=== PATIENT | female | born 1960 | race Caucasian/White ===

== ENCOUNTER 2017-01-07 13:24 | Outpatient (CLI) | payer BC | END 2017-01-07 13:25 | disposition home or self-care (01) | DX: Z12.31 Encounter for screening mammogram for malignant neoplasm of breast (principal); C34.90 Malignant neoplasm of unspecified part of unspecified bronchus or lung ==

== ENCOUNTER 2017-02-11 15:37 | Outpatient (CLI) | payer BC ==
[2017-02-11 19:17] LABS: BILIRUBIN,URINE NEGATIVE (NEGATIVE)
[2017-02-11 19:25] LABS: BUN - BLOOD UREA NITROGEN 13 mg/dL (6-20); CALCIUM 9.3 mg/dL (8.5-10.3); CARBON DIOXIDE - CO2 29 mmol/L (21-32); CHLORIDE 102 mmol/L (101-111); CHOL/HDL RATIO 3.5 (<4.4); CHOLESTEROL 177 mg/dL; CREATININE 0.8 mg/dL (0.4-1.0); GFR - MDRD 74 (>89); GLUCOSE 100 mg/dL (70-100); HDL CHOLESTEROL 50 mg/dL; POTASSIUM 3.8 mmol/L (3.5-5.0); SODIUM 139 mmol/L (135-145); TRIGLYCERIDES 375 mg/dL; VLDL CHOLESTEROL 75 mg/dL
[2017-02-11 19:48] LABS: WBC,URINE 0-3 /HPF (0-5)
== END 2017-02-11 15:38 | disposition home or self-care (01) ==
LOC: LAB.F 15:37
PROVIDERS: ATTEND Internal Medicine
DX: R39.15 Urgency of urination (principal); R35.0 Frequency of micturition; E78.00 Pure hypercholesterolemia, unspecified
CPT/HCPCS: 36415; 80048; 80061; 81001

== ENCOUNTER 2017-03-04 14:28 | Outpatient (CLI) | payer BC ==
--- NOTE | 2017-03-04 17:13 | Ultrasound Report ---
BLADDER ULTRASOUND: 03/04/2017 CLINICAL INDICATION: Urgency of urination. TECHNIQUE: Real-time scanning was performed with customer field representative static images obtained. Prevoid, the urinary bladder measures 9.6 x 8.5 x 7.3 cm, yielding a prevoid volume of 310 mL. Bilat eral ureteral jets are visualized. Postvoid residual is 26 mL. No focal bladder lesion is seen. IMPRESSION: A 26 ML POSTVOID RESIDUAL. JOB #: [id number] EXT JOB #:[id number]
== END 2017-03-04 14:29 | disposition home or self-care (01) ==
LOC: DI 14:28
PROVIDERS: ATTEND Internal Medicine
DX: R39.15 Urgency of urination (principal)
CPT/HCPCS: 76857

== ENCOUNTER 2017-10-21 17:00 | Outpatient (CLI) | payer OTHER ==
--- NOTE | 2017-10-22 10:39 | Ultrasound Report ---
PELVIC ULTRASOUND: 10/21/2017 CLINICAL INDICATION: Pain. TECHNIQUE: Transabdominal pelvic ultrasound performed for global evaluation. Transvaginal pelvic ultrasound performed for detailed evaluation. Real-time scanning performed and static images obtained. FINDINGS: The uterus is anteverted, measuring 4.0 x 4.0 x 2.5 cm. The endometrial echo complex measures 2 mm. No focal myometrial lesion is appreciated. The ovaries are unremarkable, with the right measuring 1.7 x 1.4 x 1.1 cm and the left measuring 1.5 x 1.1 x 1.0 cm. No free fluid is present. IMPRESSION: NORMAL PELVIC ULTRASOUND. TD: 10/22/2017 10:37
== END 2017-10-21 17:01 | disposition home or self-care (01) ==
LOC: DI 17:00
PROVIDERS: ATTEND Obstetrics & Gynecology
DX: R10.2 Pelvic and perineal pain (principal)
CPT/HCPCS: 76830; 76856

== ENCOUNTER 2017-11-07 08:00 | Outpatient (CLI) | payer OTHER ==
[2017-11-07 17:33] LABS: BASOPHILS % (AUTO) 0.7 %; EOSINOPHILS % (AUTO) 0.7 %; HGB - HEMOGLOBIN 12.5 g/dL (12.0-16.0); LYMPHOCYTES # (AUTO) 2.3 10^3/uL (1.5-3.5); LYMPHOCYTES % (AUTO) 35.2 %; MEAN CORPUSCULAR HEMOGLOBIN 29.4 pg (27.0-31.0); MEAN CORPUSCULAR HGB CONC 33.1 g/dL (32.0-36.0); MEAN CORPUSCULAR VOLUME 88.9 fL (81.0-99.0); MEAN PLATELET VOLUME 9.4 fL (7.9-10.8); MONOCYTES # (AUTO) 0.5 10^3/uL (0.0-1.0); MONOCYTES % (AUTO) 7.6 %; NEUTROPHILS # (AUTO) 3.6 10^3/uL (1.5-6.6); NEUTROPHILS % (AUTO) 55.8 %; PLT - PLATELET COUNT 240 10^3/uL (130-450); RED BLOOD COUNT 4.24 10^6/uL (4.20-5.40); RED CELL DISTRIBUTION WIDTH 12.5 % (12.0-15.0); WHITE BLOOD COUNT 6.5 x10^3/uL (4.8-10.8)
[2017-11-07 17:47] LABS: ALBUMIN 4.5 g/dL (3.2-5.5); ALBUMIN/GLOBULIN RATIO 1.7 (1.0-2.2); ALKALINE PHOSPHATASE 51 IU/L (42-121); ALT ALANINE AMINOTRANSFERASE 27 IU/L (10-60); AST ASPARTATE AMINOTRANSFERASE 20 IU/L (10-42); BILIRUBIN,TOTAL 0.4 mg/dL (0.2-1.0); BUN - BLOOD UREA NITROGEN 14 mg/dL (6-20); CALCIUM 8.8 mg/dL (8.5-10.3); CARBON DIOXIDE - CO2 27 mmol/L (21-32); CHLORIDE 102 mmol/L (101-111); CREATININE 0.7 mg/dL (0.4-1.0); GFR - MDRD 86 (>89); GLUCOSE 91 mg/dL (70-100); SODIUM 136 mmol/L (135-145); TOTAL PROTEIN 7.1 g/dL (6.7-8.2)
== END 2017-11-07 08:01 | disposition home or self-care (01) ==
LOC: LAB.F 08:00
PROVIDERS: ATTEND Nurse Practitioner Family
DX: R25.2 Cramp and spasm (principal)
CPT/HCPCS: 36415; 80053; 84443; 85025

== ENCOUNTER 2017-12-02 15:11 | Outpatient (CLI) | payer OTHER ==
--- NOTE | 2017-12-03 08:30 | Ultrasound Report ---
EXAM: RIGHT LOWER EXTREMITY VENOUS ULTRASOUND EXAM DATE: 12/02/2017 04:15 PM. CLINICAL HISTORY: LEG CRAMP, RIGHT. COMPARISON: None. TECHNIQUE: Real-time sonographic vascular imaging was performed by the golf stud riveter through the lower extremity utilizing both color-flow and Doppler spectral analysis. Multiple patient care representative static benjamin ges were saved for review. FINDINGS: Common Femoral Vein (CFV): Normal. CFV-GSV Junction: Normal. Profunda Femoral Vein (PFV): Normal. Femoral Vein (FV) Prox: Normal. Femoral Vein (FV) Mid: Normal. Femoral Vein (FV) Dist: Normal. Popliteal Vein: Normal. Posterior Tibial Veins: Normal. Peroneal Veins: Normal. Contralateral Side CFV: Normal. Other: None. IMPRESSION: No evidence for right lower extremity deep venous thrombosis. [facility] Referring Provider Line: [phone] SITE ID: [id number]
== END 2017-12-02 15:12 | disposition home or self-care (01) ==
LOC: DI 15:11
PROVIDERS: ATTEND Nurse Practitioner Family
DX: R25.2 Cramp and spasm (principal)

== ENCOUNTER 2017-12-13 15:20 | Outpatient (CLI) | payer OTHER ==
--- NOTE | 2017-12-16 13:53 | Mammography Report ---
DIGITAL SCREENING MAMMOGRAM: 12/13/2017 CLINICAL INDICATION: A 57-year-old for screening. COMPARISON: 12/2016, 12/2015, 10/2014, 07/2013, 07/2012, 07/2011, 05/2010. TECHNIQUE: Routine CC and MLO projections were obtained of the breasts. FINDINGS: Scattered fibroglandular tissue is present within the breasts. There are no dominant masses, suspicious microcalcifications, or secondary signs of malignancy. In comparison to the previous studies, there are no significant changes. IMPRESSION: NO MAMMOGRAPHIC EVIDENCE OF MALIGNANCY. NO SIGNIFICANT INTERVAL CHANGES. RECOMMENDATION: Screening mammography is recommended annually. BIRADS CATEGORY 1 - NEGATIVE. STANDARD QUALIFYING STATEMENTS: 1. This examination was reviewed with the aid of Computed-Aided Detection (CAD). 2. A negative or benign imaging report should not delay biopsy if clinically suspicious findings are present. Consider surgical consultation if warranted. More than 5% of cancers are not identified by imaging. 3. Dense breasts may obscure an underlying neoplasm. TD: 12/16/2017 13:53
== END 2017-12-13 15:21 | disposition home or self-care (01) ==
LOC: DI.S 15:20
PROVIDERS: ATTEND Nurse Practitioner Family
DX: Z12.31 Encounter for screening mammogram for malignant neoplasm of breast (principal)
CPT/HCPCS: 77067

== ENCOUNTER 2017-12-13 15:21 | Outpatient (CLI) | payer OTHER ==
--- NOTE | 2017-12-13 22:51 | XRAY Report ---
EXAM: CHEST RADIOGRAPHY EXAM DATE: 12/13/2017 03:42 PM. CLINICAL HISTORY: Malignant lung neoplasm. COMPARISON: 01/07/2017. TECHNIQUE: 2 views. FINDINGS: Lungs/Pleura: Right mid lung scarring, otherwise no focal opacities evident. No pleural effusion. No pneumothorax. Normal volumes. Mediastinum: Heart and mediastinal contours are unremarkable. Other: No bony abnormality noted. IMPRESSION: Right mid lung scarring, otherwise unremarkable 2-view chest radiography. [facility] Referring Provider Line: [phone] SITE ID: [id number]
== END 2017-12-13 15:22 | disposition home or self-care (01) ==
LOC: DI.S 15:21
PROVIDERS: ATTEND Nurse Practitioner Family
DX: C34.90 Malignant neoplasm of unspecified part of unspecified bronchus or lung (principal)
CPT/HCPCS: 71046

== ENCOUNTER 2018-01-06 10:17 | Outpatient (CLI) | payer OTHER ==
[2018-01-06 18:36] LABS: CHOL/HDL RATIO 3.8 (<4.4); CHOLESTEROL 175 mg/dL; HDL CHOLESTEROL 46 mg/dL; LDL CHOLESTEROL,CALCULATED 104 mg/dL; LDL/HDL RATIO 2.3 (<4.4); VLDL CHOLESTEROL 25 mg/dL
== END 2018-01-06 10:18 | disposition home or self-care (01) ==
LOC: LAB.F 10:17
PROVIDERS: ATTEND Nurse Practitioner Family
DX: E78.00 Pure hypercholesterolemia, unspecified (principal)
CPT/HCPCS: 36415; 80061; 83721

== ENCOUNTER 2018-07-08 11:10 | Outpatient (CLI) | payer OTHER ==
[~2018-07-08 11:10] MED LIST: IOPAMIDOL-300 100 ML VIAL ONE; IOVERSOL 320 50 ML VIAL ONE
[2018-07-08] MEDS ORDERED: IOPAMIDOL-300 100 ML VIAL IVP ONE (14:27)
[2018-07-08] MEDS ORDERED: IOVERSOL 320 50 ML VIAL PO ONE (14:27)
--- NOTE | 2018-07-09 10:15 | CT Report ---
Reason: PELVIC PAIN,PERSONAL HISTORY OF MALIGNANT NEOPLASM Procedure Date: 07/08/2018 Accession Number: [id number] / [id number] Procedure: CT - Abdomen/Pelvis W/ CPT Code: FULL RESULT: EXAM: CT ABDOMEN AND PELVIS WITH CONTRAST EXAM DATE: 07/08/2018 12:59 PM. CLINICAL HISTORY: Pelvic pain. Personal history of malignant neoplasm. COMPARISONS: CT chest with contrast 02/20/2016. CT abdomen and pelvis 08/21/2007. TECHNIQUE: Routine helical CT imaging was performed through the abdomen and pelvis. IV contrast: Yes. Enteric contrast: No. Reconstructions: Coronal and sagittal. In accordance with CT protocol optimization, one or more of the following dose reduction techniques were utilized for this exam: automated exposure control, adjustment of mA and/or KV based on patient size, or use of iterative reconstructive technique. FINDINGS: Lung Bases: Unremarkable. Liver: Normal. No masses. Gallbladder/Bile Ducts: Unremarkable. Spleen: Normal. Pancreas: Normal. Adrenal Glands: Normal. Kidneys: Normal. No masses or hydronephrosis. Peritoneal Cavity/Bowel: Normal. No free fluid, free air or adenopathy. No masses or acute inflammatory process. The appendix is well visualized and normal. Pelvic Organs: 2 surgical clips are noted in the region of the cervix. The bladder and visualized pelvic organs are within normal limits. Vasculature: No aneurysms or other significant abnormality. Bones: No significant abnormality. Other: None. IMPRESSION: Normal abdomen and pelvis CT. [facility]
--- NOTE | 2018-07-09 10:24 | CT Report ---
Reason: PELVIC PAIN,PERSONAL HISTORY OF MALIGNANT NEOPLASM Procedure Date: 07/08/2018 Accession Number: [id number] / [id number] Procedure: CT - Chest W/ CPT Code: FULL RESULT: EXAM: CT CHEST WITH CONTRAST EXAM DATE: 07/08/2018 12:59 PM. CLINICAL HISTORY: Pelvic pain. Personal history of malignant neoplasm. COMPARISONS: CT chest with contrast 02/20/2016. TECHNIQUE: Routine helical CT imaging was performed through the chest. IV contrast: Yes. Reconstructions: Coronal and sagittal. In accordance with CT protocol optimization, one or more of the following dose reduction techniques were utilized for this exam: automated exposure control, adjustment of mA and/or KV based on patient size, or use of iterative reconstructive technique. FINDINGS: Lungs/Pleura: No nodules, bronchial thickening, consolidation, or edema. Pulmonary vasculature is normal. No pericardial or pleural effusion. No pneumothorax. Stable appearance of a long staple line in the right middle lobe from a prior procedure. Mediastinum: Normal. No adenopathy or masses. The heart and great vessels are normal. Bones: Unremarkable. Visualized Abdomen: Dictated separately. Other: None. IMPRESSION: Normal chest CT. [facility]
== END 2018-07-08 11:11 | disposition home or self-care (01) ==
LOC: DI 11:10
PROVIDERS: ATTEND Physician Assistant Medical
DX: R10.2 Pelvic and perineal pain (principal); Z85.41 Personal history of malignant neoplasm of cervix uteri; Z85.118 Personal history of other malignant neoplasm of bronchus and lung
CPT/HCPCS: 71260; 74177; Q9967

== ENCOUNTER 2018-10-24 10:54 | Outpatient (CLI) | payer OTHER ==
[2018-10-24 17:33] LABS: BASOPHILS % (AUTO) 0.5 %; EOSINOPHILS # (AUTO) 0.1 10^3/uL (0.0-0.7); EOSINOPHILS % (AUTO) 2.6 %; HGB - HEMOGLOBIN 13.3 g/dL (12.0-16.0); LYMPHOCYTES # (AUTO) 2.2 10^3/uL (1.5-3.5); LYMPHOCYTES % (AUTO) 44.2 %; MEAN CORPUSCULAR HEMOGLOBIN 29.9 pg (27.0-31.0); MEAN CORPUSCULAR HGB CONC 33.1 g/dL (32.0-36.0); MEAN CORPUSCULAR VOLUME 90.3 fL (81.0-99.0); MEAN PLATELET VOLUME 9.5 fL (7.9-10.8); MONOCYTES # (AUTO) 0.4 10^3/uL (0.0-1.0); MONOCYTES % (AUTO) 8.2 %; NEUTROPHILS # (AUTO) 2.3 10^3/uL (1.5-6.6); NEUTROPHILS % (AUTO) 44.5 %; PLT - PLATELET COUNT 223 10^3/uL (130-450); RED BLOOD COUNT 4.46 10^6/uL (4.20-5.40); RED CELL DISTRIBUTION WIDTH 13.1 % (12.0-15.0); WHITE BLOOD COUNT 5.1 x10^3/uL (4.8-10.8)
[2018-10-24 18:04] LABS: ALBUMIN 4.3 g/dL (3.2-5.5); ALBUMIN/GLOBULIN RATIO 1.6 (1.0-2.2); ALKALINE PHOSPHATASE 51 IU/L (42-121); ALT ALANINE AMINOTRANSFERASE 33 IU/L (10-60); AST ASPARTATE AMINOTRANSFERASE 22 IU/L (10-42); BILIRUBIN,TOTAL 0.6 mg/dL (0.2-1.0); BUN - BLOOD UREA NITROGEN 10 mg/dL (6-20); CALCIUM 8.9 mg/dL (8.5-10.3); CARBON DIOXIDE - CO2 26 mmol/L (21-32); CHLORIDE 103 mmol/L (101-111); CHOL/HDL RATIO 3.8 (<4.4); CHOLESTEROL 203 mg/dL; CREATININE 0.6 mg/dL (0.4-1.0); GFR - MDRD 103 (>89); GLUCOSE 95 mg/dL (70-100); HDL CHOLESTEROL 53 mg/dL; LDL CHOLESTEROL,CALCULATED 115 mg/dL; LDL/HDL RATIO 2.2 (<4.4); SODIUM 137 mmol/L (135-145); VLDL CHOLESTEROL 35 mg/dL
== END 2018-10-24 10:55 | disposition home or self-care (01) ==
LOC: LAB.F 10:54
PROVIDERS: ATTEND Physician Assistant Medical
DX: E78.00 Pure hypercholesterolemia, unspecified (principal); Z51.81 Encounter for therapeutic drug level monitoring; Z79.899 Other long term (current) drug therapy
CPT/HCPCS: 36415; 80053; 80061; 83721; 85025

== ENCOUNTER 2019-04-10 11:27 | Outpatient (CLI) | payer OTHER ==
--- NOTE | 2019-04-13 11:42 | Mammography Report ---
Reason: SCREENING MAMMO Procedure Date: 04/10/2019 Accession Number: [id number] / [id number] Procedure: MGS - Screening Mammo Dig Bilat CPT Code: FULL RESULT: EXAM: Screening Mammo Dig Bilat DATE: 04/10/2019 11:49 AM CLINICAL HISTORY: Routine screening. Personal history of ovarian cancer. Family history of breast cancer in maternal aunt age 45 and another at age 42. TECHNIQUE: (B) - Bilateral CC and MLO views were obtained. COMPARISON: 12/13/2017 through 10/29/2014 PARENCHYMAL PATTERN: (A) - The breasts demonstrate scattered fibroglandular densities bilaterally. FINDINGS: Bilateral breasts: There are no suspicious masses, calcifications, or areas of distortion. IMPRESSION: Negative examination. BI-RADS category 1. RECOMMENDATION: (ANNUAL) - Recommend routine annual screening mammography. Note: Given family history, patient may be at increased risk for development of breast cancer. Formal risk assessment with a genetic counselor should be considered; patient may benefit from advanced screening practices and/or risk reduction strategies if there is sufficient assessed risk. BI-RADS CATEGORY: (1) - Negative. STANDARD QUALIFYING STATEMENTS: 1. This examination was reviewed with the aid of Computer-Aided Detection (CAD). 2. A negative or benign imaging report should not preclude biopsy if clinically suspicious findings are present. 3. Dense breasts may obscure an underlying neoplasm. 4. This examination was reviewed without the aid of 3D breast imaging (tomosynthesis).
== END 2019-04-10 11:28 | disposition home or self-care (01) ==
LOC: DI.S 11:27
DX: Z12.31 Encounter for screening mammogram for malignant neoplasm of breast (principal); Z80.3 Family history of malignant neoplasm of breast; Z85.43 Personal history of malignant neoplasm of ovary
CPT/HCPCS: 77067

== ENCOUNTER 2019-11-13 12:15 | Outpatient (CLI) | payer OTHER ==
[2019-11-13] MEDS ORDERED: IOVERSOL 320 50 ML VIAL ONE (12:27)
[2019-11-13] MEDS ORDERED: IOVERSOL 320 100 ML VIAL IVP ONE ×2 (12:27→13:51)
[2019-11-13] MEDS ORDERED: IOVERSOL 320 50 ML VIAL PO ONE (13:51)
--- NOTE | 2019-11-16 08:50 | CT Report ---
Reason: HX OF LUNG CA Procedure Date: 11/13/2019 Accession Number: [id number] / [id number] Procedure: CT - ABDOMEN W CPT Code: Final Report FULL RESULT: EXAM: CT ABDOMEN EXAM DATE: 11/13/2019 01:50 PM. CLINICAL HISTORY: HX OF LUNG CA. COMPARISON: None. TECHNIQUE: Routine helical CT imaging was performed through the abdomen. IV contrast: 100 mL OPTIRAY 320 Enteric contrast: No. Reconstruction: Coronal and sagittal. In accordance with CT protocol optimization, one or more of the following dose reduction techniques were utilized for this exam: automated exposure control, adjustment of mA and/or KV based on patient size, or use of iterative reconstructive technique. FINDINGS: Lung Bases: Mild bibasilar atelectasis. Liver: Diffusely decreased liver attenuation compatible with fatty infiltration. Tiny low attenuation focus in left lower lobe, probable cyst that is too small to characterize. No suspicious mass. Gallbladder/Bile Ducts: Unremarkable. Spleen: Normal. Splenule noted. Pancreas: Normal. Adrenal Glands: Normal. Kidneys: Normal. No masses or hydronephrosis. Peritoneal Cavity/Bowel: Normal. No free fluid, free air or adenopathy. No masses or acute inflammatory process. Vasculature: No aneurysms or other significant abnormality. Bones: No significant abnormality. Other: None. IMPRESSION: 1. Fatty liver. 2. No evidence of mass or adenopathy. [facility]
--- NOTE | 2019-11-16 09:00 | CT Report ---
Reason: HX OF LUNG CA Procedure Date: 11/13/2019 Accession Number: [id number] / [id number] Procedure: CT - CHEST W CPT Code: Final Report FULL RESULT: EXAM: CT CHEST EXAM DATE: 11/13/2019 01:50 PM. CLINICAL HISTORY: HX OF LUNG CA. COMPARISONS: CHEST W/ 07/08/2018 12:44 PM. TECHNIQUE: Routine helical CT imaging was performed through the chest. IV contrast: 100 mL Optiray 320. Reconstructions: Coronal and sagittal. In accordance with CT protocol optimization, one or more of the following dose reduction techniques were utilized for this exam: automated exposure control, adjustment of mA and/or KV based on patient size, or use of iterative reconstructive technique. FINDINGS: Lungs/Pleura: No nodules, bronchial thickening, consolidation, or edema. Pulmonary vasculature is normal. No pericardial or pleural effusion. No pneumothorax. Right middle lobe surgical suture. Bibasilar atelectasis. Mediastinum: Normal. No adenopathy or masses. The heart and great vessels are normal. Bones: Unremarkable. Visualized Abdomen: Splenule noted. No mass or adenopathy evident. Other: None. IMPRESSION: Normal chest CT. [facility]
== END 2019-11-13 12:16 | disposition home or self-care (01) ==
LOC: DI 12:15
PROVIDERS: ATTEND Physician Assistant Medical
DX: Z85.118 Personal history of other malignant neoplasm of bronchus and lung (principal); K76.0 Fatty (change of) liver, not elsewhere classified
CPT/HCPCS: 71260; 74160; Q9967

== ENCOUNTER 2020-02-23 09:00 | Outpatient (CLI) | payer OTHER ==
[2020-02-23 15:22] LABS: BASOPHILS # (AUTO) 0.1 10^3/uL (0.0-0.1); BASOPHILS % (AUTO) 0.8 %; EOSINOPHILS # (AUTO) 0.1 10^3/uL (0.0-0.7); HGB - HEMOGLOBIN 13.4 g/dL (12.0-16.0); LYMPHOCYTES # (AUTO) 2.9 10^3/uL (1.5-3.5); LYMPHOCYTES % (AUTO) 43.9 %; MEAN CORPUSCULAR HEMOGLOBIN 30.6 pg (27.0-31.0); MEAN CORPUSCULAR HGB CONC 32.8 g/dL (32.0-36.0); MEAN CORPUSCULAR VOLUME 93.2 fL (81.0-99.0); MEAN PLATELET VOLUME 11.1 fL (7.9-10.8); MONOCYTES # (AUTO) 0.5 10^3/uL (0.0-1.0); MONOCYTES % (AUTO) 7.1 %; NEUTROPHILS % (AUTO) 45.9 %; PLT - PLATELET COUNT 241 10^3/uL (130-450); RED BLOOD COUNT 4.38 10^6/uL (4.20-5.40); RED CELL DISTRIBUTION WIDTH 12.6 % (12.0-15.0); WHITE BLOOD COUNT 6.6 x10^3/uL (4.8-10.8)
[2020-02-23 15:44] LABS: ALBUMIN 4.4 g/dL (3.2-5.5); ALBUMIN/GLOBULIN RATIO 1.6 (1.0-2.2); ALKALINE PHOSPHATASE 67 IU/L (42-121); ALT ALANINE AMINOTRANSFERASE 50 IU/L (10-60); AST ASPARTATE AMINOTRANSFERASE 26 IU/L (10-42); BILIRUBIN,TOTAL 0.6 mg/dL (0.2-1.0); BUN - BLOOD UREA NITROGEN 11 mg/dL (6-20); CALCIUM 9.2 mg/dL (8.5-10.3); CARBON DIOXIDE - CO2 26 mmol/L (21-32); CHLORIDE 105 mmol/L (101-111); CHOL/HDL RATIO 4.2 (<4.4); CHOLESTEROL 179 mg/dL; CREATININE 0.7 mg/dL (0.4-1.0); GLUCOSE 103 mg/dL (70-100); HDL CHOLESTEROL 43 mg/dL; LDL CHOLESTEROL,CALCULATED 94 mg/dL; LDL/HDL RATIO 2.2 (<4.4); SODIUM 140 mmol/L (135-145); TOTAL PROTEIN 7.1 g/dL (6.7-8.2); VLDL CHOLESTEROL 42 mg/dL
== END 2020-02-23 09:01 | disposition home or self-care (01) ==
LOC: LAB.S 09:00
PROVIDERS: ATTEND Physician Assistant
DX: E78.00 Pure hypercholesterolemia, unspecified (principal); Z51.81 Encounter for therapeutic drug level monitoring
CPT/HCPCS: 36415; 80053; 80061; 83721; 85025

== ENCOUNTER 2021-01-17 08:36 | Day surgery (SDC) | payer OTHER ==
[2021-01-17] MEDS ORDERED: LACTATED RINGERS 1,000 ML IV ONE ×2 (08:51→12:00)
[2021-01-17] MEDS ORDERED: fentaNYL 250 MCG/5 ML VIAL ONE (11:22)
[2021-01-17] MEDS ORDERED: MIDAZOLAM 2 MG/2 ML VIAL ONE ×3 (11:22→11:41)
[2021-01-17 12:27] VITALS: BP 105/68
== END 2021-01-17 08:37 | disposition home or self-care (01) ==
LOC: SDS 08:36
PROVIDERS: ATTEND Surgery
PROC: 0DBL8ZZ Excision of Transverse Colon, Via Natural or Artificial Opening Endoscopic (ICD-10-PCS; principal; 2021-01-17 10:00)
DX: Z12.11 Encounter for screening for malignant neoplasm of colon (principal); D12.3 Benign neoplasm of transverse colon; K57.30 Diverticulosis of large intestine without perforation or abscess without bleeding; K64.8 Other hemorrhoids; K64.4 Residual hemorrhoidal skin tags; F32.9 Major depressive disorder, single episode, unspecified; E78.5 Hyperlipidemia, unspecified
CPT/HCPCS: 45380; J3010; J7120

== ENCOUNTER 2021-03-27 10:06 | Outpatient (CLI) | payer OTHER ==
--- NOTE | 2021-03-28 13:56 | Mammography Report ---
BILATERAL DIGITAL SCREENING MAMMOGRAM 3D/2D WITH EXAGGERATED CC: 03/27/2021 CLINICAL: Family history of breast cancer. Comparison is made to exams dated: 04/10/2019 mammogram, 12/13/2017 mammogram, 01/09/2016 mammogram, an d 10/29/2014 mammogram - [facility]. There are scattered fibroglandular elements in both breasts. No significant masses, calcifications, or other findings are seen in either breast. There has been no significant interval change. IMPRESSION: NEGATIVE There is no mammographic evidence of malignancy. A 1 year screening mammogram is recommended. This exam was interpreted at Station ID: [id number]. NOTE: For mammograms, a report in lay terms will be sent to the patient. Approximately 15% of breast malignancies will not be visualized mammographically. In the management of a palpable breast mass, a negative mammogram must not discourage biopsy of a clinically suspicious lesion. Electronically Signed By: Keith Graham M.D. aty/penrad:03/27/2021 13:15:49 ACR BI-RADS Category 1: Negative 3341F PARENCHYMAL PATTERN: (A) - The breast(s) demonstrate(s) scattered fibroglandular densities. BI-RADS CATEGORY: (1) - 1 RECOMMENDATION: (ANNUAL) - Recommend routine annual screening mammography. [id number] 1 year screening LATERALITY: (B)
== END 2021-03-27 10:07 | disposition home or self-care (01) ==
LOC: DI.S 10:06
PROVIDERS: ATTEND Obstetrics & Gynecology
DX: Z12.31 Encounter for screening mammogram for malignant neoplasm of breast (principal); Z80.3 Family history of malignant neoplasm of breast

== ENCOUNTER 2022-06-13 12:59 | Outpatient (CLI) | payer OTHER ==
--- NOTE | 2022-06-14 10:37 | Mammography Report ---
BILATERAL DIGITAL SCREENING MAMMOGRAM 3D/2D: 06/13/2022 CLINICAL: Routine screening. Family history of breast cancer. Comparison is made to exams dated: 03/27/2021 mammogram, 04/10/2019 mammogram, 12/13/2017 mammogram, and 01/07/2017 mammogram - [facility]. There are scattered areas of fibroglandular density in both breasts (category b / 25%-50% glandular t issue). No significant masses, calcifications, or other findings are seen in either breast. There has been no significant interval change. IMPRESSION: NEGATIVE There is no mammographic evidence of malignancy. A 1 year screening mammogram is recommended. Based on the Tyrer Cuzick model (a risk assessment model) the patients lifetime risk is 4.5% and her 10 year risk is 1.9%. According to the ACR, ACS, and NCCN guidelines, an annual breast MRI exam stacie g with mammogram is recommended if the patients lifetime risk is 20% or greater. This exam was interpreted at Station ID: [id number]. NOTE: For mammograms, a report in lay terms will be sent to the patient. Approximately 15% of breast malignancies will not be visualized mammographically. In the management of a palpable breast mass, a negative mammogram must not discourage biopsy of a clinically suspicious lesion. Electronically Signed By: Keith aldana/paula:06/13/2022 17:51:36 ACR BI-RADS Category 1: Negative 3341F PARENCHYMAL PATTERN: (A) - The breast(s) demonstrate(s) scattered fibroglandular densities. BI-RADS CATEGORY: (1) - 1 RECOMMENDATION: (ANNUAL) - Recommend routine annual screening mammography. [id number] 1 year screening LATERALITY: (B)
== END 2022-06-13 13:00 | disposition home or self-care (01) ==
LOC: DI.S 12:59
DX: Z12.31 Encounter for screening mammogram for malignant neoplasm of breast (principal); Z80.3 Family history of malignant neoplasm of breast

== ENCOUNTER 2024-01-10 13:07 | Outpatient (CLI) | payer OTHER ==
[2024-01-10] MEDS ORDERED: DIATRIZOATE MEGLU/DIATRIZO SOD 30 ML BOTTLE PO ONE (13:29)
[2024-01-10] MEDS ORDERED: iohexoL-300 100 ML VIAL ONE (13:29)
[2024-01-10 13:37] LABS: CREATININE 0.6 mg/dL (0.6-1.3)
[2024-01-10] MEDS: iohexoL-300 100 ML VIAL IVP ONE (15:19)
[2024-01-10] MEDS: DIATRIZOATE MEGLU/DIATRIZO SOD 30 ML BOTTLE PO ONE (15:19)
--- NOTE | 2024-01-10 17:56 | CT Report ---
PROCEDURE: Chest W INDICATIONS: LUNG CA CONTRAST: 100ml omni 300 TECHNIQUE: After the administration of intravenous contrast, a CT scan of the chest was performed. Images were recorded and evaluated at appropriate window settings. Reformats: axial MIP of the chest, coronal and sagittal. For radiation dose reduction, the following was used: automated exposure control, adjustme nt of mA and/or kV according to patient size. COMPARISON: 11/13/2019 FINDINGS: Image quality: Diagnostic. Chest wall and lower neck: No chest wall mass or thyroid nodule. No breast mass. No axillary or supra clavicular adenopathy by size. Lungs and pleura: Linear scarring laterally in the left lower lobe and right middle lobe. There is a suture line along the right minor fissure. No suspicious lung nodule, mass, groundglass opacity, or c onsolidation. No pleural effusions. No pneumothorax. Mediastinum: Heart size is normal. No pericardial effusion. No large vessel abnormality. No mediastin al adenopathy by size criteria. Bones: No aggressive osseous abnormality. Upper Abdomen: Dictated separately IMPRESSION: No evidence of recurrent disease in the chest. Reviewed by: Tory Matthews MD on 01/10/2024 5:55 PM PDT Approved by: Tory Matthews MD on 01/10/2024 5:55 PM PDT Station ID: [id number]
--- NOTE | 2024-01-10 18:05 | CT Report ---
PROCEDURE: Abdomen/Pelvis W INDICATIONS: LUNG CA CONTRAST: 100ml omni 300 TECHNIQUE: After the administration of intravenous contrast, a CT scan of the abdomen and pelvis was performed. Images were recorded and evaluated at appropriate window settings. Reformats: coronal and sagittal. F or radiation dose reduction, the following was used: automated exposure control, adjustment of mA and /or kV according to patient size. COMPARISON: 11/13/2019 and 07/08/2020 FINDINGS: Image quality: Diagnostic. Lower chest: Dictated separately. Liver: Hepatic steatosis. There is relative fatty sparing at gallbladder fossa. Relative hyperdense, 1.1 cm nodule in the gallbladder fossa. No other solid mass. Gallbladder: No radiopaque stones or wall thickening. Biliary tree: No intrahepatic or extrahepatic dilation, accounting for age. Spleen: No splenomegaly. A splenule inferior to the hilum. Pancreas: Normal. Adrenals: No adrenal nodule. Kidneys and ureters: Symmetric enhancement. No hydronephrosis or nephrolithiasis. No solid mass or cy st requiring follow-up. Nondilated ureters. Stomach, bowel and peritoneum: No gastric or small bowel dilation. No abnormal wall thickening. Kate l appendix. Normal quantity of colonic stool. Occasional distal sigmoid diverticulosis. Lymph nodes: No central or retroperitoneal adenopathy. Vessels: No infrarenal aortic aneurysm. Patent portal vein. PELVIS Reproductive organs: Diminutive and anteverted uterus. There are 2 radiodensities in the cervix. Resi dual ovarian tissue is normal. No suspicious adnexal masses. Bladder: No abnormal wall thickening, accounting for underdistention. Pelvic lymph nodes: No pelvic adenopathy by size criteria. Bones: No aggressive osseous abnormality. Other: No significant ventral or inguinal hernia. IMPRESSION: New hyperdense nodule in the gallbladder fossa is most likely nodular fatty sparing given the locatio n and morphology. Further evaluation with liver protocol MRI is recommended for confirmation given calderon dubose's history of neoplasm. No other suspicious finding to suggest metastatic disease in the abdomen or pelvis. Reviewed by: Tory Matthews MD on 01/10/2024 6:03 PM PDT Approved by: Tory Matthews MD on 01/10/2024 6:03 PM PDT Station ID: [id number]
== END 2024-01-10 13:08 | disposition home or self-care (01) ==
LOC: LAB 13:07
PROVIDERS: ATTEND Internal Medicine
DX: Z08 Encounter for follow-up examination after completed treatment for malignant neoplasm (principal); Z85.89 Personal history of malignant neoplasm of other organs and systems; R93.3 Abnormal findings on diagnostic imaging of other parts of digestive tract
CPT/HCPCS: 36415; 71260; 74177; 82565; Q9963; Q9967